=== PATIENT | female | born 1995 | race Asian ===

== ENCOUNTER 2019-05-02 12:48 | Emergency (ER) | payer OTHER ==
[~2019-05-02] VITALS: Ht 165.1 cm; Wt 63.6 kg
[2019-05-02 13:32] VITALS: BP 110/73
[2019-05-02] MEDS ORDERED: PLEASE ENTER ALLERGIES MC SCH (14:00)
[2019-05-02] MEDS ORDERED: MICROFIBRILLAR COLLAGEN 1 GM TP ONE (14:00)
[2019-05-02] MEDS ORDERED: HYDROcodone/APAP 5/325 TABLET PO ONE (14:30)
[2019-05-02] MEDS ORDERED: DIPH,PERTUSS(ACELL),TET VAC/PF 0.5 ML IM-VACC ONE ×2 (14:36→15:30)
[2019-05-02] MEDS ORDERED: HYDROcodone/APAP 5/325 TABLET ONE (14:36)
== END 2019-05-02 15:07 | disposition home or self-care (01) ==
LOC: ED 15:00
DX: S61.215A Laceration without foreign body of left ring finger without damage to nail, initial encounter (principal); W26.8XXA Contact with other sharp object(s), not elsewhere classified, initial encounter; Y93.89 Activity, other specified; Y92.69 Other specified industrial and construction area as the place of occurrence of the external cause; Y99.8 Other external cause status
CPT/HCPCS: 90471; 90715